=== PATIENT | male | born 1960 | race Caucasian/White ===

== ENCOUNTER 2017-11-05 21:00 | Outpatient (CLI) | payer BC | END 2017-11-06 05:50 | disposition home or self-care (01) | LOC: SLEEP 21:00 | PROVIDERS: ATTEND Nurse Practitioner Family | DX: G47.33 Obstructive sleep apnea (adult) (pediatric) (principal) | CPT/HCPCS: 95810 ==

== ENCOUNTER 2019-06-15 21:10 | Inpatient (IN) | payer BC ==
[~2019-06-15] VITALS: Ht 180 cm; Wt 89.3 kg
--- NOTE | 2019-06-15 21:11 | NUR ---
CALLED [facility] ER TO RECEIVE REPORT. REPORT RECEIVED FROM JODI SANCHEZ.
--- NOTE | 2019-06-15 22:10 | NUR ---
VIVIAN GODINEZ admitted to room 510-1, with an admitting diagnosis of NSTEMI, CHEST PAIN, on 06/15/19 from [facility] ER via STRETCHER, accompanied by EMS STAFF. VIVIAN GODINEZ introduced to surroundings, call light, bed controls, phone, TV, temperature control, lights, meal times, smoking policy, visitor policy, side rail policy, bathrooms and showers. Patient Rights given to patient in the handbook. VIVIAN GODINEZ verbalizes understanding that [facility] is not responsible for the loss or damage to any personal effects or valuables that are kept in the patients possession during their hospitalization. VIVIAN GODINEZ verbalizes understanding of Interdisciplinary Patient Education. Patient and/or family were informed about the Rapid Response Team and its purpose.
--- NOTE | 2019-06-15 23:12 | NUR ---
THIS RN CALLED DR. GAN TO OBTAIN ORDERS FOR PT. DR. GAN STATED "I'LL PUT SOME ORDERS IN."
[2019-06-15 23:24] VITALS: BP 176/109
[2019-06-15] MEDS ORDERED: MELATONIN 3 MG TABLET PO PRN (23:30)
[2019-06-15] MEDS ORDERED: ACETAMINOPHEN 325 MG TABLET PO PRN (23:30)
[2019-06-15] MEDS ORDERED: ONDANSETRON 4 MG/2 ML (SDV) Z0FRAN IVP PRN (23:30)
[2019-06-15] MEDS ORDERED: ONDANSETRON 4 MG (ZOFRAN) ORAL DISSOLVE TAB PO PRN (23:30)
[2019-06-15] MEDS ORDERED: ENOXAPARIN 100 MG/1 ML (LOVENOX) SYR SC SCH (23:30)
[2019-06-15] MEDS ORDERED: POLYETHYLENE GLYCOL 17 GM (MIRALAX) PACK PO PRN (23:30)
[2019-06-15] MEDS ORDERED: BISACODYL 10 MG SUPP (DULCOLAX) PR PRN (23:30)
[2019-06-16] VITALS (11 sets, daily range): BP systolic 117–164; BP diastolic 67–96
[2019-06-16] MEDS ORDERED: RT-ALBUTEROL SULF 2.5 MG/3 ML PRE-MIX VIAL INH PRN (00:15)
--- NOTE | 2019-06-16 00:17 | NUR ---
TIMELINE NOTE BELOW: 06/16/1910: CRITICAL RESULT RECEIVED FROM LAB OF TROPONIN 0.623 06/16/1915: DR. LIVINGSTON PAGED. 06/16/1916: DR. LIVINGSTON CALLED THIS RN. THIS RN INFORMED DR. LIVINGSTON OF CRITICAL TROPONIN LEVEL. NEW ORDERS OBTAINED AT THIS TIME. SEE ORDER HISTORY.
[2019-06-16] MEDS ORDERED: hydrOXYzine (VISTARIL/ATARAX) 25 MG capsule/tablet PO ONE (00:30)
[2019-06-16] MEDS ORDERED: ENOXAPARIN 100 MG/1 ML (LOVENOX) SYR SC ONE (01:00)
[2019-06-16] MEDS ORDERED: ENOXAPARIN 100 MG/1 ML (LOVENOX) SYR ONE (01:06)
[2019-06-16 05:17] LABS: BASOPHILS % (AUTO) 0 % (0-10); EOSINOPHILS # (AUTO) 0.3 10^3/uL (0.0-0.3); EOSINOPHILS % (AUTO) 3 % (0-10); HEMATOCRIT 46 % (40-54); HEMOGLOBIN 15.9 G/DL (13.3-17.7); LYMPHOCYTES # (AUTO) 2.1 X 10^3 (1.0-4.0); LYMPHOCYTES % (AUTO) 27 % (12-44); MEAN CORPUSCULAR HEMOGLOBIN 30 PG (25-34); MEAN CORPUSCULAR HGB CONC 35 G/DL (32-36); MEAN CORPUSCULAR VOLUME 87 FL (80-99); MEAN PLATELET VOLUME 10.7 FL (7.4-10.4); MONOCYTES # (AUTO) 0.8 X 10^3 (0.0-1.0); MONOCYTES % (AUTO) 10 % (0-12); NEUTROPHILS # (AUTO) 4.7 X 10^3 (1.8-7.8); NEUTROPHILS % (AUTO) 60 % (42-75); PLATELET COUNT 195 10^3/uL (130-400); RED CELL DISTRIBUTION WIDTH 12.9 % (10.0-14.5); WHITE BLOOD COUNT 7.9 10^3/uL (4.3-11.0)
[2019-06-16 05:27] LABS: INR 1.1 (0.8-1.4); PROTHROMBIN TIME PATIENT 14.3 SEC (12.2-14.7)
[2019-06-16 05:41] LABS: ALANINE AMINOTRANSFERASE 44 U/L (0-55); ALBUMIN 4.3 GM/DL (3.2-4.5); ALKALINE PHOSPHATASE 61 U/L (40-136); BILIRUBIN,TOTAL 1.3 MG/DL (0.1-1.0); BUN/CREATININE RATIO 16; CALCIUM 9.2 MG/DL (8.5-10.1); CARBON DIOXIDE 22 MMOL/L (21-32); CHLORIDE 109 MMOL/L (98-107); CHOLESTEROL 187 MG/DL (< 200); GFR ESTIMATED > 60; GLUCOSE 101 MG/DL (70-105); HDL CHOLESTEROL 35 MG/DL (40-60); SODIUM 140 MMOL/L (135-145); TRIGLYCERIDES 118 MG/DL (<150); VLDL CHOLESTEROL 24 MG/DL (5-40)
[2019-06-16] MEDS ORDERED: hydrOXYzine (ATARAX) 10 MG TAB PO NR (06:44)
[2019-06-16] MEDS ORDERED: meTOproloL SUCCINATE 50 MG (TOPROL XL) TAB PO SCH (09:00)
[2019-06-16] MEDS ORDERED: ASPIRIN E.C. 81 MG (ECOTRIN) TAB PO SCH (09:00)
[2019-06-16] MEDS: amLODIPine 10 MG (NORVASC) TAB PO SCH (09:06)
[2019-06-16] MEDS: CLOPIDOGREL 75 MG (PLAVIX) TABLET PO SCH (09:06)
[2019-06-16] MEDS ORDERED: MELA10CA2 PO (09:13)
[2019-06-16] MEDS ORDERED: ADAL40PE5 SC (09:13)
[2019-06-16] MEDS ORDERED: ESZO3TAB39 PO (09:13)
--- NOTE | 2019-06-16 09:13 | NUR ---
SPOKE WITH THE PATIENT ABOUT HIS MEDICATIONS. HE LISTED WHAT HE IS TAKING. HE STATES SINCE STARTING THE HUMIRA HE IS NO LONGER TAKING LIALDA. HE ONLY TAKES THE LUNESTA AND HUMIRA PRESCRIPTION AND HE TAKES MELATONIN OTC. HE DOES NOT TAKE ANY OTHER MEDICATION AT THIS TIME.
--- NOTE | 2019-06-16 09:31 | Consultation-Cardiology ---
HPI-Cardiology Cardiology Consultation: Date of Consultation 06/16/19 Time Seen by a Provider: 08:30 Date of Admission Attending Physician Avelina Santos MD Admitting Physician Sameer Landrum DO Consulting Physician JAXSON LIVINGSTON MD, MA, FACP, FACC, FSCAI, CCDS HPI: Chief Complaint: CC: Chest discomfort HPI 58 yo man with chest discomfort: started on 06/13/19, daily, lasts up to 5 min, associated with mod exertion on most occasion, improved with rest, midsternal, moderate, radiating to both shoulders and arms, not associated with other symptoms. No shortness of breath or palp or syncope or leg swelling. Review of Systems-Cardiology Review of Systems Constitutional: No tiredness, No weight loss, No weight gain Eyes: No vision change Ears/Nose/Throat: No recent hearing loss Respiratory: As described under HPI Cardiovascular: As described under HPI Gastrointestinal: No constipation; diarrhea (chronic, intermittent diarrhea, none recently); No nausea, No vomiting Genitourinary: No dysuria, No hematuria Musculoskeletal: No back pain, No joint pain Skin: No rash, No ulcerations Psychiatric/Neurological: No seizure, No focal weakness, No syncope Hematologic: No bleeding abnormalities [id number]-Hzlrxn-Ftcxnt Hx Patient Social History Alcohol Use: Denies Use Recreational Drug Use: No Recent Foreign Travel: No Recent Infectious Disease Expo: No Hospitalization with Isolation: Contact Physical Abuse Screen: No Sexual Abuse: No Immunizations Up To Date Date of Influenza Vaccine: Jun 15, 1990 Past Medical History PMH As described under Assessment. Family Medical History Family Medical History: Father had IN when he was in his early 60s Family History: Diabetes mellitus 19 FATHER Allergies and Home Medications Allergies Coded Allergies: No Allergy Information Available (Unverified , 07/03/17) Home Medications Adalimumab 40 Mg/0.4 Ml Pen.ij.kit, 40 MG SC EVERY 2 WEEKS, (Reported) Eszopiclone 3 Mg Tablet, 3 MG PO HS, (Reported) Melatonin 10 Mg Capsule, 10 MG PO HS, (Reported) Patient Home Medication List Home Medication List Reviewed: Yes Physical Exam-Cardiology Physical Exam Vital Signs/I&O 06/15/19 06/15/19 06/16/19 06/16/19 22:36 23:24 00:00 00:00 Temp 36.8 36.5 Pulse 47 53 47 Resp 16 18 B/P (MAP) 176/109 145/85 (105) Pulse Ox 97 96 O2 Delivery Room Air Room Air NIV CPAP 06/16/19 06/16/19 06/16/19 06/16/19 00:11 00:12 01:00 04:00 Pulse 49 47 Pulse Ox 95 95 O2 Delivery Room Air Room Air FiO2 21 06/16/19 06/16/19 06/16/19 06/16/19 04:00 07:01 08:00 08:00 Temp 36.4 Pulse 52 53 Resp 14 B/P (MAP) 164/96 (118) Pulse Ox 97 O2 Delivery Room Air Room Air Room Air 06/16/19 08:30 Temp 36.5 Pulse 47 Resp 18 B/P (MAP) 163/90 (114) Pulse Ox 96 O2 Delivery Room Air Capillary Refill : Constitutional: AAO x 3, well-developed, well-nourished HEENT: EOMI, hearing is well preserved; No xanthelasmas are seen Neck: carotid pulses are 2 + bilaterally, with good upstrokes Respiratory: No accessory muscle use; other (good bilateral air enty) Cardiovascular: regular rate-rhythm, S1 and S2, systolic murmur (faint JARRELL at card base) Gastrointestinal: No tender; soft; No guarding, No rebound; audible bowel sounds Extremities: No clubbing, No cyanosis, No significant edema Neurologic/Psychiatric: oriented x 3, other (moves all limbs equally, gait normal) Skin: No rash on exposed areas, No ulcerations on exposed areas Data Review Labs Laboratory Tests 06/15/19 22:35: Troponin I 0.623*H 06/16/19 04:45: White Blood Count 7.9, Red Blood Count 5.32, Hemoglobin 15.9, Hematocrit 46, Mean Corpuscular Volume 87, Mean Corpuscular Hemoglobin 30, Mean Corpuscular Hemoglobin Concent 35, Red Cell Distribution Width 12.9, Platelet Count 195, Mean Platelet Volume 10.7H, Neutrophils (%) (Auto) 60, Lymphocytes (%) (Auto) 27, Monocytes (%) (Auto) 10, Eosinophils (%) (Auto) 3, Basophils (%) (Auto) 0, Neutrophils # (Auto) 4.7, Lymphocytes # (Auto) 2.1, Monocytes # (Auto) 0.8, Eosinophils # (Auto) 0.3, Basophils # (Auto) 0.0, Prothrombin Time 14.3, INR Comment 1.1, Sodium Level 140, Potassium Level 4.0, Chloride Level 109H, Carbon Dioxide Level 22, Anion Gap 9, Blood Urea Nitrogen 14, Creatinine 0.90, Estimat Glomerular Filtration Rate > 60, BUN/Creatinine Ratio 16, Glucose Level 101, Calcium Level 9.2, Corrected Calcium 9.0, Magnesium Level 2.0, Total Bilirubin 1.3H, Aspartate Amino Transf (AST/SGOT) 32, Alanine Aminotransferase (ALT/SGPT) 44, Alkaline Phosphatase 61, Total Protein 7.0, Albumin 4.3, Triglycerides Level 118, Cholesterol Level 187, LDL Cholesterol Direct 144H, VLDL Cholesterol 24, HDL Cholesterol 35L Laboratory Tests 06/16/19 04:45 A/P-Cardiology Assessment/Admission Diagnosis Ac NSTEMI Hypertension Sinus bradycardia, asymptomatic, but preclude beta-caitlin therapy Discussion and Recomendations * Treat with ASA, Plavix * Treat with amlodipine. Not suitable for bb (see above) * Cath recommended. We discussed the rationale, procedure, risks, benefits, potential complications, and alternatives of card cath and possible ad hoc cor intervention. He understands and provides informed consent Clinical Quality Measures DVT/VTE Risk/Contraindication: Risk Factor Score Per Nursin RFS Level Per Nursing on Admit: 2=Moderate JAXSON LIVINGSTON MD FACP [facility] CCDS Jun 16, 2019 09:31
--- NOTE | 2019-06-16 10:48 | Short Stay Summary-Hospitalist ---
History of Present Illness HPI/Chief Complaint Pt is a 58yoCM with a PMH of Crohn Disease who presented to the ER due to chest pain. He states it started on Sunday and was intermittent over the weekend. He had mowed and done weed eating and noticed some dyspnea with that along with chest discomfort. Yesterday evening after moving a bed to a friend house he developed chest pain that radiated down his arms and felt as if someone was standing on his chest. He presented to the ER in [place] where he was found to have a troponin of 0.4. He was admitted here for an NSTEMI. He says his pain is now gone and resolved in route to the ER. He does not smoke, have DM or HTN. He does have a family history of CAD as his dad had a CABG in his late fifites. Source: patient Date Seen 06/16/19 Time Seen by a Provider: 10:43 Attending Physician Avelina Santos MD PCP Sameer Landrum DO Referring Physician Date of Admission Jun 15, 2019 at 22:13 Home Medications & Allergies Home Medications Reviewed patient Home Medication Reconciliation performed by pharmacy medication reconciliations refinery technician and/or nursing. Patients Allergies have been reviewed. Allergies Allergies Coded Allergies No Allergy Information Available (Ljifkhgtlf94/7/17) Past Rqlvkec-Hdqzsa-Lpvrrw Hx Past Med/Social Hx: Reviewed Nursing Past Med/Soc Hx Patient Social History Marrital Status: Alcohol Use: Denies Use Recreational Drug Use: No Smoking Status: Never a Smoker Physical Abuse Screen: No Sexual Abuse: No Recent Foreign Travel: No Contact w/other who traveled: No Recent Hopitalizations: Yes (JULY 2018 FOR C.DIFF) Recent Infectious Disease Expo: No Immunizations Up To Date Pediatric: No Date of Influenza Vaccine: Jun 15, 1990 Seasonal Allergies Seasonal Allergies: No Past Medical History Respiratory: Sleep Apnea Currently Using CPAP: Yes Sexually Transmitted Disease: No HIV/AIDS: No Gastrointestinal: Crohns Disease Loss of Vision: Denies Hearing Impairment: Denies Psychosocial: Sleep Difficulties, Suicide Attempts, Depression History of Blood Disorders: No Family History Reviewed Nursing Family Hx Diabetes mellitus 19 FATHER Heart Disease, CAD Under 55 Years Old Review of Systems Constitutional: no symptoms reported EENTM: no symptoms reported Respiratory: dyspnea on exertion Cardiovascular: chest pain; No Hx of Intervention Genitourinary: no symptoms reported Musculoskeletal: no symptoms reported Skin: no symptoms reported Psychiatric/Neurological: No Symptoms Reported Physical Exam Physical Exam Vital Signs Vital Signs - First Documented 06/15/19 06/15/19 06/16/19 22:36 23:24 00:12 Temp 36.8 Pulse 47 Resp 16 B/P (MAP) 176/109 Pulse Ox 97 O2 Delivery Room Air FiO2 21 Capillary Refill : Height, Weight, BMI Height: '" Weight: lbs. oz. kg; 27.62 BMI Method: General Appearance: No Apparent Distress, WD/WN HEENT: PERRL/EOMI, Moist Mucous Membranes Neck: Non Tender, Supple Respiratory: Lungs Clear, No Respiratory Distress Cardiovascular: Regular Rate, Rhythm, No Murmur Gastrointestinal: Normal Bowel Sounds, Non Tender, Soft Extremity: Normal Capillary Refill, No Calf Tenderness Neurologic/Psychiatric: Alert, Oriented x3, Normal Mood/Affect Skin: Normal Color, Warm/Dry Results Results/Procedures Labs Laboratory Tests 06/16/19 04:45 Patient resulted labs reviewed. Short Stay Diagnosis Discharge Diagnosis-Short Stay Admission Diagnosis NSTEMI Final Discharge Diagnosis NSTEMI Conclusion Plan NSTEMI Cardiology consulted, appreciate recs Plan for Cardiac cath, pending results can possibly DC home ASA given FLP reveals LDL of 144, start statin HTN Not previously diagnosed but BP consistently in the 160s Continue Amlodipine Bradycardic in the 40s so metoprolol held Crohn Disease On Weekly Humara Next dose Diagnosis/Problems Diagnosis/Problems (1) NSTEMI (non-ST elevation myocardial infarction) Status: Acute (2) Crohn disease Status: Acute Qualifiers: Qualified Codes: K50.919 - Crohn's disease, unspecified, with unspecified complications (3) HTN (hypertension) Status: Acute Qualifiers: Qualified Codes: I10 - Essential (primary) hypertension Clinical Quality Measures DVT/VTE Risk/Contraindication: Risk Factor Score Per Nursin RFS Level Per Nursing on Admit: 2=Moderate Copy Copies To 1: SAMEER LANDRUM KATELYN M MD Jun 16, 2019 10:48
[2019-06-16] MEDS ORDERED: LIDOCAINE 1% INJ 20 ML 20 ML VIAL ONE ×2 (11:02→16:21)
[2019-06-16] MEDS ORDERED: NS IV 1000 ML 1,000 ML ONE (11:02)
[2019-06-16] MEDS ORDERED: HEParin (CATH LAB) 2,000 ML IV ONE (11:03)
--- NOTE | 2019-06-16 15:20 | NUR ---
PT LEAVING UNIT VIA BED ACCOMPANIED BY STAFF AND FAMILY FOR CATH. WILL WAIT FOR PT TO RETURN TO UNIT.
[2019-06-16] MEDS ORDERED: fentaNYL INJECTION 100 MCG/2 ML AMP ONE (15:27)
[2019-06-16] MEDS ORDERED: MIDAZOLAM 5 MG/5 ML (VERSED) VIAL ONE (15:27)
[2019-06-16] MEDS ORDERED: NITRO DRIP 25000 MCG/D5W 0 ML IV ONE (16:26)
[2019-06-16] MEDS ORDERED: HEParin 1000 UNIT/ML (10ML VIAL) FOR BOLUS ONE (16:26)
[2019-06-16] MEDS ORDERED: EPTIFIBATIDE BOLUS 20 ML IV ONE (16:27)
[2019-06-16] MEDS ORDERED: MIDAZOLAM 2 MG/2 ML (VERSED) VIAL ONE (16:39)
[2019-06-16] MEDS ORDERED: CLOPIDOGREL 300 MG (PLAVIX) TABLET PO ONE (17:20)
[2019-06-16] MEDS ORDERED: ASPIRIN 81 MG CHEW (CHILDREN'S ASA) ONE (17:20)
[2019-06-16] MEDS ORDERED: PATIENT MAY USE OWN MEDS, ALL MC SCH (17:30)
[2019-06-16] MEDS ORDERED: PATIENT MAY USE OWN MEDS, ALL PO SCH (17:45)
--- NOTE | 2019-06-16 17:52 | CARDIAC CATHETERIZATION ---
DATE OF SERVICE: 06/16/2019 CARDIAC CATHETERIZATION AND CORONARY INTERVENTION INDICATIONS: The patient is a 58-year-old gentleman who was admitted with acute non-ST elevation myocardial infarction. He has been having symptoms of unstable angina for several days. Cardiac catheterization was carried out after having obtained an informed consent. Informed consent was also obtained for ad hoc coronary intervention, if needed. DESCRIPTION OF PROCEDURE: He was brought to the cardiac catheterization laboratory in a fasting state. Right groin was prepared and draped in the usual sterile fashion. Lidocaine 1% was used for local anesthesia. Modified Seldinger technique was used to advance a 6-[place] sheath in right femoral artery, 5-[place] JL4 catheter was used for left coronary angiography, 5-[place] JR4 catheter for right coronary angiography, 5-[place] pigtail catheter was used for left heart catheterization and left ventricular angiography. Subsequently, percutaneous intervention was carried out in the left anterior descending artery that is described below. PERCUTANEOUS CORONARY INTERVENTION TO THE LEFT ANTERIOR DESCENDING: The left anterior descending artery had 95% mid vessel stenosis with slow antegrade flow. We used a 6-[place] JL4 guide catheter to engage the left coronary artery. We gave 6000 units of intravenous heparin and double bolus of Integrilin. We used a BMW wire across the lesion. We carried out balloon angioplasty with Emerge 2.5 x 30 mm balloon. This reduced the stenosis from 95% to approximately 60%. Flow improved in the distal vessel from ALBA 2 to ALBA 3. We advanced Alpine Xience 2.5 x 38 mm stent. This was carefully positioned to cover the entire long lesion. The stent was deployed at 18 atmospheres. Subsequently, we carried out post-dilatation with Quantum NC 2.75 x 30 mm balloon. For more focal spot within the stented segment, we used a Quantum NC 2.75 x 12 cm balloon. Subsequent angiography reveals no significant residual stenosis. Flow throughout the vessel was normal. The patient tolerated the procedure well. HEMODYNAMICS: Left ventricular end-diastolic pressure following coronary angiography was 8 mmHg. There was no significant pressure gradient on pullback across the aortic valve. Ascending aortic pressure was 94/60 with a mean of 75 mmHg. CORONARY ANGIOGRAPHY: Left main coronary artery does not exhibit significant disease. Left anterior descending artery is heavily calcified, especially in its mid portion and the distal portion. There was 95% mid vessel stenosis with slow antegrade flow. Following percutaneous intervention detailed above and deployment of Alpine Xience 2.5 x 38 mm stent, postdilated to 2.75 mm with a noncompliant balloon, there is no significant residual stenosis and distal flow is normal. The left circumflex artery has mild diffuse plaque. Left circumflex artery is dominant. Left circumflex arteries have supplies collaterals to the distal right coronary artery. The right coronary artery is severely diseased in its proximal portion and occluded in its distal portion with a minimal antegrade flow. LEFT VENTRICULAR ANGIOGRAPHY: Left ventricular angiography was carried out in the right anterior oblique projection. Global left ventricular systolic function is normal. No regional wall motion abnormalities seen in this view. Left ventricular ejection fraction is approximately 60%. CONCLUSIONS: 1. Coronary artery disease primarily consisting of 95% mid vessel stenosis of the left anterior descending artery with slow antegrade flow. This was successfully stented with Alpine Xience 2.5 x 38 mm stent that was postdilated with a 2.75 mm Quantum balloon with reduction of stenosis to no significant residual and normal antegrade flow. The right coronary artery is very small in caliber and is chronically occluded. There are left to right collaterals. Left circumflex artery is dominant. 2. Well preserved global left ventricular systolic function with ejection fraction approximately 60%. 3. Normal left ventricular end-diastolic pressure. DISCUSSION AND RECOMMENDATIONS: Dual-antiplatelet therapy has been initiated. Statin therapy is being continued. He does not appear to be a suitable candidate for beta-caitlin therapy, given significant sinus bradycardia at rest. He does have a small caliber right coronary artery that has not been intervened on. This appears to be chronically occluded and is collateralized from the left circumflex artery and this vessel does not appear suitable for stenting given the small size. If symptoms are an issue in the future, consideration can be given to balloon angioplasty. For now, it appears best to treat conservatively. Job ID: [id number] DocumentID: [id number] Dictated Date: 06/16/2019 17:32:43 Excel Analyst Date: 06/16/2019 17:51:21 Dictated By: JAXSON LIVINGSTON MD, MA, FACP, FACC,
[2019-06-16] MEDS: NS IV 1000 ML 1,000 ML IV SCH (18:52)
[2019-06-16] MEDS ORDERED: MELATONIN 10 MG TABLET PO SCH (21:00)
[2019-06-16] MEDS ORDERED: ESZOPICLONE 3 MG TABLET PO PRN (21:00)
[2019-06-17] MEDS: NS IV 1000 ML 1,000 ML IV SCH ×2 (03:36→04:57)
[2019-06-17 03:50] VITALS: BP 132/73
--- NOTE | 2019-06-17 03:50 | NUR ---
TIMELINE NOTE BELOW: 06/16/19 1920: VS OBTAINED AND RT GROIN SITE PALPATED AT THIS TIME, SITE SOFT AND NON-TENDER. PT STATES NO PAIN. 06/16/19 1950: VS OBTAINED AND RT GROIN SITE PALPATED AT THIS TIME, SITE SOFT AND NON-TENDER. PT STATES NO PAIN. 06/16/192049: VS OBTAINED AND RT GROIN SITE PALPATED AT THIS TIME, SITE SOFT AND NON-TENDER. PT STATES NO PAIN. 06/16/192149: VS OBTAINED AND RT GROIN SITE PALPATED AT THIS TIME, SITE SOFT AND NON-TENDER. PT STATES NO PAIN. 06/16/192249: VS OBTAINED AND RT GROIN SITE PALPATED AT THIS TIME, SITE SOFT AND NON-TENDER. PT STATES NO PAIN. 06/16/190: VS OBTAINED AND RT GROIN SITE PALPATED AT THIS TIME, SITE SOFT AND NON-TENDER. PT STATES NO PAIN. 06/17/19 0350: VS OBTAINED AND RT GROIN SITE PALPATED AT THIS TIME, SITE SOFT AND NON-TENDER. PT STATES NO PAIN.
[2019-06-17 05:47] LABS: BASOPHILS # (AUTO) 0.1 10^3/uL (0.0-0.1); BASOPHILS % (AUTO) 1 % (0-10); EOSINOPHILS # (AUTO) 0.2 10^3/uL (0.0-0.3); EOSINOPHILS % (AUTO) 2 % (0-10); HEMATOCRIT 46 % (40-54); HEMOGLOBIN 15.6 G/DL (13.3-17.7); LYMPHOCYTES # (AUTO) 1.7 X 10^3 (1.0-4.0); LYMPHOCYTES % (AUTO) 21 % (12-44); MEAN CORPUSCULAR HEMOGLOBIN 30 PG (25-34); MEAN CORPUSCULAR HGB CONC 34 G/DL (32-36); MEAN CORPUSCULAR VOLUME 87 FL (80-99); MEAN PLATELET VOLUME 10.5 FL (7.4-10.4); MONOCYTES # (AUTO) 0.9 X 10^3 (0.0-1.0); MONOCYTES % (AUTO) 11 % (0-12); NEUTROPHILS # (AUTO) 5.4 X 10^3 (1.8-7.8); NEUTROPHILS % (AUTO) 65 % (42-75); PLATELET COUNT 168 10^3/uL (130-400); RED CELL DISTRIBUTION WIDTH 13.2 % (10.0-14.5); WHITE BLOOD COUNT 8.3 10^3/uL (4.3-11.0)
[2019-06-17 06:03] LABS: ALANINE AMINOTRANSFERASE 53 U/L (0-55); ALBUMIN 3.9 GM/DL (3.2-4.5); ALKALINE PHOSPHATASE 50 U/L (40-136); BILIRUBIN,TOTAL 1.2 MG/DL (0.1-1.0); BUN/CREATININE RATIO 14; CALCIUM 8.9 MG/DL (8.5-10.1); CARBON DIOXIDE 21 MMOL/L (21-32); CHLORIDE 108 MMOL/L (98-107); CREATININE SERUM 0.93 MG/DL (0.60-1.30); GFR ESTIMATED > 60; GLUCOSE 94 MG/DL (70-105); POTASSIUM 3.9 MMOL/L (3.6-5.0); SODIUM 140 MMOL/L (135-145); TOTAL PROTEIN 6.7 GM/DL (6.4-8.2)
[2019-06-17 08:15] VITALS: BP 125/76
[2019-06-17] MEDS ORDERED: ATOR80TA76 PO (08:25)
[2019-06-17] MEDS ORDERED: CLOP75TA28 PO (08:25)
[2019-06-17] MEDS ORDERED: ASPI-999 PO (08:25)
--- NOTE | 2019-06-17 08:30 | Discharge Inst-Simple/Standard ---
Discharge Inst-Standard Reconcile Patient Problems Problems Reviewed?: Yes Discharge Medications New, Converted or Re-Newed RX: Transmitted to Pharmacy Patient Instructions/Follow Up Plan of Care/Instructions/FU: Please continue to take your medications as written and follow up with your PCP in the next week and with Dr Rea as scheduled. Activity as Tolerated: Yes Discharge Diet: Cardiac Diet Return to The Hospital For: Chest pain, shortness of breath, if you feel like you are getting worse. STEVE BERMAN MD Jun 17, 2019 08:30
--- NOTE | 2019-06-17 08:45 | Discharge Summary ---
Diagnosis/Chief Complaint Date of Admission Jun 15, 2019 at 22:13 Date of Discharge Discharge Date: Jun 17, 2019 Admission Diagnosis NSTEMI Primary Care Sameer Landrum DO Discharge Diagnosis (1) NSTEMI (non-ST elevation myocardial infarction) Status: Acute (2) Crohn disease Status: Acute (3) HTN (hypertension) Status: Acute Discharge Summary Procedures/Consulations Cardiology- Dr Rea Discharge Physical Exam Allergies: Coded Allergies: No Allergy Information Available (Unverified , 07/03/17) Vitals & I&Os Vital Signs Date Time Temp Pulse Resp B/P (MAP) Pulse Ox O2 Delivery O2 Flow Rate FiO2 06/17/19 11:35 52 18 151/87 98 Room Air 06/17/19 08:15 36.0 06/16/19 00:12 21 General Appearance: No Apparent Distress, WD/WN Respiratory: Lungs Clear, No Respiratory Distress Cardiovascular: Regular Rate, Rhythm, No Murmur Hospital Course Pt is a 58yoCM with a PMH of Crohn disease who was admitted due to an NSTEMI. He underwent cardiac cath and had a stent placed by Dr Rea. He was started on dual antiplatelet therapy and high intensity statin and had an otherwise uneventful hospital stay. He was discharged home in stable condition to follow up with her PCP. His BP had been slightly elevated but patient opted to try lifestyle changes and monitoring BP at home. I called and updated his PCP Dr Landrum to this. He is to follow up with Dr Rea in 2 weeks. Labs (last 24 hrs) Patient resulted labs reviewed. Pending Labs Discussion & Recommendations Discharge Planning: >30 minutes discharge planning Discharge Home Medications: Active Scripts Active Aspirin 81 Mg Tab.chew 81 Mg PO DAILY Atorvastatin Calcium 80 Mg Tablet 80 Mg PO HS Clopidogrel (Clopidogrel Bisulfate) 75 Mg Tablet 75 Mg PO DAILY Reported Melatonin 10 Mg Capsule 10 Mg PO HS Eszopiclone 3 Mg Tablet 3 Mg PO HS Humira Pen (Adalimumab) 40 Mg/0.4 Ml Pen.ij.kit 40 Mg SC EVERY 2 WEEKS Instructions to patient/family Please see electronic discharge instructions given to patient. Clinical Quality Measures DVT/VTE Risk/Contraindication: Risk Factor Score Per Nursin RFS Level Per Nursing on Admit: 2=Moderate Copy Copies To 1: SAMEER LANDRUM DO Problem Qualifiers (1) Crohn disease: Gastrointestinal tract location: unspecified location Digestive disease complication type: unspecified complication Qualified Codes: K50.919 - Crohn's disease, unspecified, with unspecified complications (2) HTN (hypertension): Hypertension type: essential hypertension Qualified Codes: I10 - Essential (primary) hypertension STEVE BERMAN MD Jun 17, 2019 08:45
[2019-06-17] MEDS ORDERED: ASPIRIN 81 MG CHEW (CHILDREN'S ASA) PO SCH (09:00)
[2019-06-17] MEDS: amLODIPine 10 MG (NORVASC) TAB PO SCH (09:20)
[2019-06-17] MEDS: CLOPIDOGREL 75 MG (PLAVIX) TABLET PO SCH (09:20)
--- NOTE | 2019-06-17 09:59 | Progress Note - Cardiology ---
Cardiology SOAP Progress Note Subjective: Sitting up in bed. Denies any c/o CP, palpitations, dyspnea, syncope or near syncope. Reports mild right groin discomfort. Objective: I&O/Vital Signs 06/17/19 06/17/19 06/17/19 06/17/19 01:00 03:50 04:00 07:00 Temp 36.6 Pulse 44 49 48 Resp 16 B/P (MAP) 132/73 (92) Pulse Ox 100 O2 Delivery NIV CPAP NIV CPAP 06/17/19 06/17/19 06/17/19 08:15 08:15 11:35 Temp 36.0 Pulse 58 52 Resp 16 18 B/P (MAP) 125/76 (92) 151/87 Pulse Ox 96 96 98 O2 Delivery Room Air Room Air Room Air 06/17/19 00:00 Intake Total 1340 ml Output Total 1850 ml Balance -510 ml Side: right Groin site without hematoma: Yes Condition: DP/PT pulses palpable Bruising: mild bruising Constitutional: AAO x 3, well-developed, well-nourished Respiratory: other Cardiovascular: regular rate-rhythm, S1 and S2, systolic murmur Gastrointestional: soft, audible bowel sounds Extremities: No clubbing, No cyanosis, No significant edema Neurologic/Psychiatric: oriented x 3, other Skin: No rash on exposed areas, No ulcerations on exposed areas Results/Procedures: Labs Laboratory Tests 06/17/19 05:30: White Blood Count 8.3, Red Blood Count 5.28, Hemoglobin 15.6, Hematocrit 46, Mean Corpuscular Volume 87, Mean Corpuscular Hemoglobin 30, Mean Corpuscular Hemoglobin Concent 34, Red Cell Distribution Width 13.2, Platelet Count 168, Mean Platelet Volume 10.5H, Neutrophils (%) (Auto) 65, Lymphocytes (%) (Auto) 21, Monocytes (%) (Auto) 11, Eosinophils (%) (Auto) 2, Basophils (%) (Auto) 1, Neutrophils # (Auto) 5.4, Lymphocytes # (Auto) 1.7, Monocytes # (Auto) 0.9, Eosinophils # (Auto) 0.2, Basophils # (Auto) 0.1, Sodium Level 140, Potassium Level 3.9, Chloride Level 108H, Carbon Dioxide Level 21, Anion Gap 11, Blood Urea Nitrogen 13, Creatinine 0.93, Estimat Glomerular Filtration Rate > 60, BUN/Creatinine Ratio 14, Glucose Level 94, Calcium Level 8.9, Corrected Calcium 9.0, Total Bilirubin 1.2H, Aspartate Amino Transf (AST/SGOT) 36H, Alanine Aminotransferase (ALT/SGPT) 53, Alkaline Phosphatase 50, Total Protein 6.7, Albumin 3.9 A/P: Assessment: Ac NSTEMI CAD - Card cath on 06/16/19: Coronary artery disease primarily consisting of 95% mid vessel stenosis of the left anterior descending artery with slow antegrade flow. This was successfully stented with [employer] Xience 2.5 x 38 mm stent that was postdilated with a 2.75 mm Quantum balloon with reduction of stenosis to no significant residual and normal antegrade flow. The right coronary artery is very small in caliber and is chronically occluded. There are left to right collaterals. Left circumflex artery is dominant. Well preserved global left ventricular systolic function with ejection fraction approximately 60%. Normal left ventricular end-diastolic pressure. Hypertension Sinus bradycardia, asymptomatic, but precludes beta-caitlin therapy HLD - statin tx Plan: * S/P cardiac cath with successful intervention on 06-16-19 * Continue ASA, Plavix and statin * Not suitable candidate for BB d/t SB (albeit asymptomatic) * BP somewhat low normal (albeit asymptomatic) - Norvasc being held * Advise out pt f/u * Discussed CV status and answered questions Physician Assessment Physician Assessment No cp or palp or syncope or shortness of breath. Wishes to go home Lungs: clear Cor: reg Ext: no c/c/e R groin: no bruising or hematoma; palpable distal pulses A&R * As documented in our note above that I updated (italics) and as noted below * I had a detailed discussion with him and his regarding cath findings and interventions undertaken * We reviewed risk factor modification * We emphasized the importance of compliance with meds, in particular his dual antiplatelet therapy * We have recommended close clinical f/u for now JASON PFEIFFER Jun 17, 2019 09:59 JAXSON LIVINGSTON MD [facility] Jun 17, 2019 12:18
[2019-06-17 11:35] VITALS: BP 151/87
--- NOTE | 2019-06-17 11:35 | NUR ---
PT DISCHARGED VIA W/C TO PRIVATE VEHICLE. ALL PERSONAL BELONGINGS INCLUDING CPAP AND CLEANING DEVICE SENT WITH PATIENT. MEDS UNDER LOCK WERE GIVEN BACK TO PATIENT. ALL QUESTIONS ANSWERED WITH NO CONCERNS VOICED FROM PATIENT OR .
== END 2019-06-17 11:35 | disposition home or self-care (01) | DRG 247 ==
LOC: CSD 22:13
PROVIDERS: ADMIT Internal Medicine; ATTEND Internal Medicine
PROC: 027034Z Dilation of Coronary Artery, One Artery with Drug-eluting Intraluminal Device, Percutaneous Approach (ICD-10-PCS; principal; 2019-06-16)
PROC: 4A023N7 Measurement of Cardiac Sampling and Pressure, Left Heart, Percutaneous Approach (ICD-10-PCS; 2019-06-16)
PROC: B2111ZZ Fluoroscopy of Multiple Coronary Arteries using Low Osmolar Contrast (ICD-10-PCS; 2019-06-16)
PROC: B2151ZZ Fluoroscopy of Left Heart using Low Osmolar Contrast (ICD-10-PCS; 2019-06-16)
DX: I21.4 Non-ST elevation (NSTEMI) myocardial infarction (principal); I25.110 Atherosclerotic heart disease of native coronary artery with unstable angina pectoris; I10 Essential (primary) hypertension; K50.90 Crohn's disease, unspecified, without complications; G47.30 Sleep apnea, unspecified; F32.9 Major depressive disorder, single episode, unspecified; R00.1 Bradycardia, unspecified; Z79.899 Other long term (current) drug therapy; Z82.49 Family history of ischemic heart disease and other diseases of the circulatory system; Z91.5 Personal history of self-harm
CPT/HCPCS: 36415; 80053; 80061; 83735; 84484; 85025; 85027; 85610; 93005; 93306; 93458; 94760

== ENCOUNTER 2019-08-13 09:54 | Outpatient (RCR) | payer BC ==
[~2019-08-13 09:54] MED LIST: ADAL40PE5 SC; ASPI-999 PO; ATOR80TA76 PO; CLOP75TA28 PO; ESZO3TAB39 PO; MELA10CA2 PO
== END 2019-09-01 08:00 | disposition home or self-care (01) ==
LOC: CR 09:54
PROVIDERS: ATTEND Family Medicine
DX: I21.4 Non-ST elevation (NSTEMI) myocardial infarction (principal)
CPT/HCPCS: 93798

== ENCOUNTER 2019-09-12 09:16 | Outpatient (RCR) | payer BC | END 2019-09-14 | disposition home or self-care (01) | LOC: CR3 09:16 | PROVIDERS: ATTEND Family Medicine | DX: Z48.812 Encounter for surgical aftercare following surgery on the circulatory system (principal); I21.4 Non-ST elevation (NSTEMI) myocardial infarction ==

== ENCOUNTER 2019-10-13 14:06 | Outpatient (RCR) | payer BC | END 2019-10-17 | disposition home or self-care (01) | LOC: CR3 14:06 | PROVIDERS: ATTEND Family Medicine | DX: Z48.812 Encounter for surgical aftercare following surgery on the circulatory system (principal); I21.4 Non-ST elevation (NSTEMI) myocardial infarction; Z29.8 Encounter for other specified prophylactic measures ==

== ENCOUNTER → 2019-10-14 | Outpatient (CLI) | payer BC ==
[~2019-10-14] VITALS: Ht 182 cm; Wt 91.0 kg
[~2019-10-14] MED LIST changes: +REGADENOSON 0.4 MG/5 ML SYR (LEXISCAN) IV ONE
[2019-10-14] MEDS: CATHETER FLUSH 10 ML SYR IV PRN ×2 (07:51→09:42)
[2019-10-14 09:40] VITALS: BP 149/88
--- NOTE | 2019-10-15 11:58 | STRESS TEST ---
DATE OF SERVICE: 10/14/2019 RESTING AND POST REGADENOSON TECHNETIUM-99M TETROFOSMIN SPECT CT IMAGING ORDERING PHYSICIAN: Dr. Rea. PRIMARY PHYSICIAN: Dr. Landrum. CLINICAL DIAGNOSES: Coronary artery disease, hypertension, hyperlipidemia. Baseline images were carried out after injection of 10.9 mCi of technetium-99m Tetrofosmin. This was followed by 0.4 mg regadenoson and 32.9 mCi of technetium-99m Tetrofosmin for stress imaging. The electrocardiogram showed sinus rhythm at baseline. It did not change significantly with regadenoson infusion. The patient tolerated the procedure well. Review of images at rest and following stress does not indicate any distinct perfusion defects consistent with significant myocardial ischemia or infarction. Gated images show normal regional wall motion and normal global left ventricular systolic function. Left ventricular ejection fraction is calculated to be 61%. Left ventricular end diastolic volume is 85 mL. TID is absent (1.05). CONCLUSIONS: 1. No evidence of any significant myocardial ischemia or infarction on this study. 2. Normal regional wall motion. 3. Normal global left ventricular systolic function with a calculated ejection fraction of 61%. Job ID: [id number] DocumentID: [id number] Dictated Date: 10/15/2019 09:39:03 Director Of Scientific Research Date: 10/15/2019 11:58:10 Dictated By: JAXSON REA MD, MA, FACP, FACC,
== END ==
LOC: CARD 07:36
PROVIDERS: ATTEND Internal Medicine Cardiovascular Disease
DX: I25.10 Atherosclerotic heart disease of native coronary artery without angina pectoris (principal); I10 Essential (primary) hypertension; E78.5 Hyperlipidemia, unspecified; Z95.5 Presence of coronary angioplasty implant and graft
CPT/HCPCS: 78452; 93017

== ENCOUNTER 2019-11-10 11:16 | Outpatient (RCR) | payer BC ==
[~2019-11-10 11:16] MED LIST changes: -REGADENOSON 0.4 MG/5 ML SYR (LEXISCAN) IV ONE
== END 2019-11-19 | disposition home or self-care (01) ==
LOC: CR3 11:16
PROVIDERS: ATTEND Family Medicine
DX: Z48.812 Encounter for surgical aftercare following surgery on the circulatory system (principal); I21.4 Non-ST elevation (NSTEMI) myocardial infarction; Z29.8 Encounter for other specified prophylactic measures

== ENCOUNTER → 2021-07-01 | Outpatient (RCR) | payer BC | END | disposition home or self-care (01) | LOC: CR3 06-01 07:11 | PROVIDERS: ATTEND Family Medicine | DX: Z48.812 Encounter for surgical aftercare following surgery on the circulatory system (principal); I21.4 Non-ST elevation (NSTEMI) myocardial infarction; Z29.8 Encounter for other specified prophylactic measures ==

== ENCOUNTER → 2021-08-03 | Outpatient (RCR) | payer BC | END | disposition home or self-care (01) | LOC: CR3 07-04 07:27 | PROVIDERS: ATTEND Family Medicine | DX: Z29.8 Encounter for other specified prophylactic measures (principal) ==

== ENCOUNTER 2021-09-23 07:16 | Outpatient (RCR) | payer BC | END 2021-09-25 | disposition home or self-care (01) | LOC: CR3 07:16 | PROVIDERS: ATTEND Family Medicine | DX: Z48.812 Encounter for surgical aftercare following surgery on the circulatory system (principal); I21.4 Non-ST elevation (NSTEMI) myocardial infarction; Z29.8 Encounter for other specified prophylactic measures ==

== ENCOUNTER → 2021-11-23 | Outpatient (RCR) | payer BC | END | disposition home or self-care (01) | LOC: CR3 10-03 08:27 | PROVIDERS: ATTEND Family Medicine | DX: Z48.812 Encounter for surgical aftercare following surgery on the circulatory system (principal); I21.4 Non-ST elevation (NSTEMI) myocardial infarction ==

== ENCOUNTER 2022-01-20 07:33 | Outpatient (RCR) | payer BC | END 2022-01-23 | LOC: CR3 07:33 | PROVIDERS: ATTEND Family Medicine | DX: Z48.812 Encounter for surgical aftercare following surgery on the circulatory system (principal); I21.4 Non-ST elevation (NSTEMI) myocardial infarction; Z29.8 Encounter for other specified prophylactic measures ==

== ENCOUNTER 2022-03-15 07:28 | Outpatient (RCR) | payer BC | END 2022-03-25 | disposition home or self-care (01) | LOC: CR3 07:28 | PROVIDERS: ATTEND Family Medicine | DX: Z48.812 Encounter for surgical aftercare following surgery on the circulatory system (principal); I21.4 Non-ST elevation (NSTEMI) myocardial infarction ==

== ENCOUNTER 2022-05-17 08:00 | Outpatient (RCR) | payer BC | END 2022-05-26 | disposition home or self-care (01) | LOC: CR3 08:00 | PROVIDERS: ATTEND Family Medicine | DX: Z48.812 Encounter for surgical aftercare following surgery on the circulatory system (principal); I21.4 Non-ST elevation (NSTEMI) myocardial infarction ==

== ENCOUNTER 2022-10-25 14:41 | Outpatient (RCR) | payer BC | END 2022-10-26 | disposition home or self-care (01) | LOC: CR3 14:41 | PROVIDERS: ATTEND Family Medicine | DX: Z48.812 Encounter for surgical aftercare following surgery on the circulatory system (principal); I21.4 Non-ST elevation (NSTEMI) myocardial infarction; Z29.8 Encounter for other specified prophylactic measures ==

== ENCOUNTER 2022-11-17 15:05 | Outpatient (RCR) | payer BC | END 2022-12-24 | disposition home or self-care (01) | LOC: CR3 15:05 | PROVIDERS: ATTEND Family Medicine | DX: Z48.812 Encounter for surgical aftercare following surgery on the circulatory system (principal); I21.4 Non-ST elevation (NSTEMI) myocardial infarction ==

== ENCOUNTER → 2022-12-05 | Outpatient (CLI) | payer BC ==
[~2022-12-05] MED LIST changes: +CATHETER FLUSH 10 ML SYR IVP PRN; +REGADENOSON 0.4 MG/5 ML SYR (LEXISCAN) IV ONE
[2022-12-05 09:21] VITALS: BP 137/79
--- NOTE | 2022-12-05 12:32 | STRESS TEST ---
DATE OF SERVICE: 12/05/2022 RESTING AND POST REGADENOSON TECHNETIUM-99M TETROFOSMIN SPECT CT IMAGING ORDERING PHYSICIAN: Rosa Ye APRN. PRIMARY PHYSICIAN: Dr. Landrum. CLINICAL DIAGNOSIS: Coronary artery disease. Baseline images were carried out after injection of 10.96 mCi of technetium-99m tetrofosmin. This was followed by 0.4 mg regadenoson and 29.9 mCi of technetium-99m tetrofosmin for stress imaging. The electrocardiogram showed sinus rhythm at baseline. It did not change significantly with the regadenoson infusion. The patient tolerated the procedure well. Review of images at rest and following stress does not indicate any significant perfusion defects consistent with myocardial ischemia or infarction. Gated images show normal global left ventricular systolic function with normal regional wall motion. Left ventricular ejection fraction is calculated to be 57%. CONCLUSIONS: 1. No evidence of any significant myocardial ischemia or infarction was noted. 2. Normal regional wall motion. 3. Normal global left ventricular systolic function with a calculated ejection fraction of 57%. Job ID: [id number] DocumentID: [id number] Dictated Date: 12/05/2022 12:14:54 Catalog Library Assistant Date: 12/05/2022 12:30:00 Dictated By: JAXSON LIVINGSTON MD; GE; FACP; FACC;
== END ==
LOC: CARD 07:07
PROVIDERS: ATTEND Nurse Practitioner Family
DX: I25.10 Atherosclerotic heart disease of native coronary artery without angina pectoris (principal)
CPT/HCPCS: 78452; 93017; A9502